=== PATIENT | male | born 1960 | race African-American/Black ===

== ENCOUNTER 2020-05-27 08:20 | Emergency (ER) | payer SELFPAY ==
[2020-05-27] MEDS ORDERED: CEFAZOLIN 1 GM VIAL ONE ×2 (08:23→09:03)
[2020-05-27] MEDS ORDERED: Boostrix 0.5 ML (Tdap) VIAL ONE (08:23)
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
[2020-05-27 08:50] LABS: #Basophils 0.1 thou/uL (0.0-0.2); #Eosinphils 0.4 thou/uL (0.0-0.7); #Lymphocytes 2.5 thou/uL (1.20-3.40); #Monocytes 0.8 thou/uL (0.11-0.59); #Neutrophils 9.1 thou/uL (1.40-6.50); %Basophils 0.5 % (0.0-1.0); %Lymphocytes 19.4 % (21.0-51.0); %Monocytes 6.1 % (0.0-10.0); Hemoglobin 15.5 g/dL (14.0-18.0); Mean Corpuscular HGB CONC 32.8 g/dL (32.0-36.0); Mean Corpuscular Volume 94.7 fL (78.0-98.0); Mean Platelet Volume 6.7 fL (7.4-10.4); Platelet Count 303 thou/uL (130-400); RBC Distribution Width 12.2 % (11.5-14.5); White Blood Cell (WBC) Count 12.8 thou/uL (4.8-10.8)
[2020-05-27 08:58] LABS: Prothrombin Time 13.3 sec (12.0-14.7)
[2020-05-27 08:59] LABS: PTT 27.2 sec (22.9-36.1)
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
[2020-05-27 09:14] LABS: ALT (SGPT) 21 U/L (8-55); AST (SGOT) 33 U/L (5-34); Albumin 4.3 g/dL (3.5-5.0); Alcohol 296 mg/dL (Less than 10); Alkaline Phosphatase 104 U/L (40-110); Anion Gap 21 mmol/L (10-20); BUN (Urea Nitrogen) 14 mg/dL (8.4-25.7); Bilirubin, Total 0.3 mg/dL (0.2-1.2); CK (CPK) 505 U/L (30-200); Calc. Creatinine Clearance 0 mL/min (70-130); Calcium 10.2 mg/dL (7.8-10.44); Carbon Dioxide 24 mmol/L (22-29); Chloride 89 mmol/L (98-107); Globulin 4.1 g/dL (2.4-3.5); Glucose 132 mg/dL (70-105); Lipase 35 U/L (8-78); Protein, Total 8.4 g/dL (6.0-8.3); Sodium 131 mmol/L (136-145)
[2020-05-27 09:19] LABS: Potassium 2.7 mmol/L (3.5-5.1)
[2020-05-27] MEDS ORDERED: Lidocaine 1% PF 5 ML VIAL ONE (09:45)
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
[2020-05-27] MEDS ORDERED: Ketamine 50 MG/ML (10ML VIAL) ONE ×2 (11:47→15:24)
[2020-05-27 13:10] LABS: SARS-CoV-2 MS2 Positive; SARS-CoV-2 N Gene Negative; SARS-CoV-2 S Gene Negative; SARS-CoV-2 by NAA Not Detected (NotDetected); SARS-CoV-2 orf1ab Negative
[2020-05-27] MEDS ORDERED: Iopamidol 370 76% 100 ML VIAL ONE (13:33)
[2020-05-27] MEDS ORDERED: Ondansetron PF 4 MG/2 ML Vial ONE (15:35)
[2020-05-27] MEDS ORDERED: Triple Antibiotic Oint 1 GM Packet ONE (16:26)
[2020-05-27] MEDS ORDERED: Bacitracin 1 PK ONE (16:26)
== END 2020-05-27 18:10 | disposition home or self-care (01) ==
LOC: EDBD 08:20 → ERS 08:20
DX: S02.2XXA Fracture of nasal bones, initial encounter for closed fracture (principal); S02.40CA Maxillary fracture, right side, initial encounter for closed fracture; S01.81XA Laceration without foreign body of other part of head, initial encounter; S01.511A Laceration without foreign body of lip, initial encounter; S01.21XA Laceration without foreign body of nose, initial encounter; Y04.0XXA Assault by unarmed brawl or fight, initial encounter
CPT/HCPCS: 12011; 12053; 13132; 13133; 40650; 70450; 70486; 70498; 71045; 71260; 72125; 72170; 74177; 80053; 80307; 82550; 83605; 83690; 85025; 85610; 85730; 86850; 86900; 86901; 87635; 90715; 93005; 96374; 96375; G0390; J0690; J2405; Q9967; U0003